=== PATIENT | female | born 1990 | race African-American/Black ===

== ENCOUNTER 2017-09-02 16:09 | Outpatient (CLI) | payer BC ==
[2017-09-02 17:25] LABS: Hemoglobin 13.1 g/dL (12.0-16.0); Mean Corpuscular HGB CONC 31.7 g/dL (32.0-36.0); Mean Corpuscular Hemoglobin 28.5 pg (27.0-31.0); Mean Platelet Volume 7.9 fL (7.4-10.4); Platelet Count 234 thou/uL (130-400); RBC Distribution Width 11.6 % (11.5-14.5); Red Blood Cell (RBC) Count 4.59 mill/uL (4.20-5.40)
[2017-09-02 19:48] LABS: BHCG - Serum Negative (NEGATIVE); Pregs Control Background? CLEAR/WHITE (CLR/WHITE); Pregs Control Bar Appear? YES (CONTROL BAR)
== END 2017-09-02 16:10 | disposition home or self-care (01) ==
LOC: LABBT 16:09
PROVIDERS: ATTEND Obstetrics & Gynecology
DX: Z01.812 Encounter for preprocedural laboratory examination (principal); N92.0 Excessive and frequent menstruation with regular cycle
CPT/HCPCS: 84703; 85027; 86850; 86900; 86901

== ENCOUNTER 2017-09-02 16:15 | Inpatient (IN) | payer BC ==
[2017-09-02 16:33] VITALS: BMI 36.3
--- NOTE | 2017-09-02 20:35 | HP ---
DATE OF PLANNED PROCEDURE: 09/03/2017 PROCEDURE TO BE PERFORMED: Total laparoscopic hysterectomy with bilateral salpingectomy and placemen t of ON-Q pump. PREOPERATIVE DIAGNOSES: Dysmenorrhea and menorrhagia with failed medical management. HISTORY OF PRESENT ILLNESS: Ms. Anette Pozo is a 27-year-old G0 with regular menstrual period who was referred to me from [place] [facility] for menorrhagia refractory to medical management. The patient gives a long history of heavy bleeding ever since [place]. She reports passing clots, cramping, bleedin g that affects her activities of daily living. The patient reports that she has used oral contracept richie pills, Depo-Provera, NuvaRing, Ortho Evra patch, Implanon and most recently the Mirena IUD with c ontinued abnormal bleeding. The patient came to me to discuss definitive treatment options. She pre viously had been counseled on ablation. The patient has reported to me over numerous visits that she is certain that she does not desire children. She is not in a relationship and has never been marri ed. She reports that it is the first day conversation every first date that she has no intentions on ever becoming . She reports that she has no maternal desire for children and does not plan on having any in the future. The patient reports that she feels like she has never had a normal lif e because her periods are so heavy. In addition to the medical options listed above, she also did a trial of Lysteda after seeing me with no improvement and had a workup for bleeding disorder which was negative. The patient was seen and counseled on numerous visits and strongly desires definitive man agement with a laparoscopic hysterectomy with bilateral salpingectomy. PAST MEDICAL HISTORY: Overweight, depression, anxiety. OBSTETRICAL HISTORY: G0. GYNECOLOGIC HISTORY: Periods are regular, painful, heavy, passing blood clots. Last Pap smear was n ormal. No history of STD or PID. She did receive the Gardasil vaccine. ALLERGIES: LATEX. CURRENT MEDICATIONS: Adderall 10 mg. 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 She has never been a smoker. S he drinks 3-5 alcoholic beverages a week. She has never used drugs. 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 She is single and sexually active. FAMILY HISTORY: There is no known uterine, breast, ovarian or cervical cancers. REVIEW OF SYSTEMS: Negative except as stated above. PHYSICAL EXAMINATION: VITAL SIGNS: Weight 235 pounds, blood pressure 120/78. GENERAL: No acute distress, alert and oriented. PSYCHIATRIC: Appropriate affect. LUNGS: Clear to auscultation bilaterally. CARDIOVASCULAR: No edema. ABDOMEN: Soft, no abdominal guarding, no tenderness, no hepatosplenomegaly, no hernias. GENITOURINARY: Normal external female genitalia, normal urethral meatus, normal vaginal mucosa, no c ervical lesions, nulliparous cervix. Uterus is normal nonenlarged, nontender, no adnexal masses. Pe rineum is normal. MUSCULOSKELETAL: Normal range of motion. NEUROLOGIC: Normal. SKIN: Normal. ASSESSMENT AND PLAN: Ms. Anette Pozo is a 27-year-old G0 with menorrhagia refractory to medical manag ement. She has failed all medical options and has been screened for bleeding disorders as well as Vo n Willbrand factor disorder. The patient feels and I agree with her that she has exhausted every hor monal option. She has expressed her certainty that she does not want to become or have any children and originally requested an ablation. After a long discussion of her history, failed medica l management and her social situation, we discussed the risk and benefits of tubal ligation or Essure with ablation versus robotic-assisted total laparoscopic hysterectomy and bilateral salpingectomy. The patient was provided handouts on all surgical procedures and the risk and benefits of each were r eviewed in detail. The patient has expressed her desire over multiple visits with me for definitive management with a total laparoscopic hysterectomy and bilateral salpingectomy. She understands the r isks are to include, but not limited to bleeding, infection, need for blood products, damage to intra -abdominal pelvic organs, inability to fully diagnose and treat all conditions at the time of surgery and possible need for future medical and/or surgical management. The patient also has verbalized mu ltiple times her understanding that child bearing will not be an option for her in the future and any desire for biologic children will require reproductive assistance, possible egg retrievals and a colten rogate carrier. The patient reports she has no interest in this, but is aware of the option. The samia shirley's questions have been answered to her satisfaction, and she desires to proceed with the procedu re as listed above.
[2017-09-03] MEDS ORDERED: Fentanyl 100 MCG/2 ML VIAL ONE ×3 (06:21→10:32)
[2017-09-03] MEDS ORDERED: HYDROmorphone 0.5 MG/0.5 ML SYRINGE ONE ×2 (06:22)
[2017-09-03] MEDS ORDERED: Bupivacaine HCl 0.5%/Epinephrine 1:200,000/PF 30 ml Vial ONE (06:31)
[2017-09-03] MEDS ORDERED: CEFAZOLIN/Water 2 GM/20 ML SYRINGE ONE (06:44)
[2017-09-03] MEDS ORDERED: Gabapentin 300 MG CAP ONE ×2 (07:46)
[2017-09-03] MEDS ORDERED: Famotidine/PF 20 mg/2ml Vial ONE (07:46)
[2017-09-03] MEDS ORDERED: Ropivacaine HCl/PF 750 ML in Premix Bag 1 BAG NERVE BLCK SCH (08:15)
[2017-09-03] MEDS ORDERED: Ropivacaine 0.2% 550 ML 750 ML NERVE BLCK SCH (08:15)
[2017-09-03] MEDS ORDERED: Ondansetron HCl/PF 4 MG/2 ML Vial IVP PRN ×2 (10:49→11:15)
[2017-09-03] MEDS ORDERED: Promethazine HCl 25 MG/ML VIAL SLOW IVP PRN (10:49)
[2017-09-03] MEDS ORDERED: Promethazine HCl 25 MG/ML VIAL IM PRN ×2 (10:49→11:15)
--- NOTE | 2017-09-03 10:50 | OP ---
DATE OF PROCEDURE: 09/03/2017 PREOPERATIVE DIAGNOSES: Dysmenorrhea and menorrhagia refractory to medical management. POSTOPERATIVE DIAGNOSES: Dysmenorrhea and menorrhagia refractory to medical management. PROCEDURE PERFORMED: Robotic-assisted total laparoscopic hysterectomy with bilateral salpingectomy a nd fulguration of endometriotic lesions. SURGEON: Maciej iKm D.O. ENGINE MECHANIC: Garcia Bryson M.D. ANESTHESIA: General endotracheal per Dr. Coffman. COMPLICATIONS: None. ESTIMATED BLOOD LOSS: 30 mL. URINE OUTPUT: 500 mL. LAPAROSCOPIC FINDINGS: 1. Normal appearing uterus, tubes and ovaries bilaterally. 2. Endometriotic lesions at the uterosacral ligaments and cul-de-sac. 3. No intraabdominal adhesive disease. 4. Surgical site hemostatic 5. Ureters identified bilaterally. PROCEDURE DETAILS: The patient was taken back to the OR with IV fluids running. Once she was in the OR, general anesthesia was obtained and the patient was placed in low dorsal lithotomy position. Af ter the patient was asleep, her arms were tucked at her sides. SCDs had previously been applied and initiated to the lower extremities and she received preoperative antibiotics. The vagina and abdomen were prepped and draped in normal fashion for gynecologic laparoscopy. The surgeons were scrubbed i n. Beginning vaginally, a catheter was placed into the urethra with approximately [address] ained from the bladder at the start of the case. A Delphine syringe was attached to the tip of the Fol ey catheter for manipulation of the bladder if needed during the case. An operative speculum was bharti josafat into the vagina with a normal appearing vagina and cervix noted. A single-tooth tenaculum was pl aced on the anterior lip of the cervix, uterus sounded to approximately 9 cm. A DEEPTHI Ridge manipulator was assembled with a 3-1/2 cm cup and 9 cm tip. The uterine manipulator was placed in the uterus an d vagina in normal fashion without difficulty. After the uterine manipulator was placed operative sp eculum was removed as well as the tenaculum. The surgeon's gloves were changed and attention was tur haley to the laparoscopic portion of the case. Beginning at the infraumbilical fold lidocaine was plac ed in the subcutaneous tissue. After the subcutaneous tissue was infiltrated with the local anesthet ic, a 12 mm skin incision was made with the scalpel. A Veress needle was then placed through this in cision, the peritoneal cavity was entered and the abdomen was insufflated without difficulty. Once t he abdomen was insufflated, the Veress needle was removed and a 12 mm trocar was placed through this incision. After the trocar was placed, the laparoscope was placed through this trocar with the above findings noted. The patient was then placed in Trendelenburg position. Next, under direct visualiz ation and in similar fashion a right lower quadrant 8 mm robotic port was placed as well as the right upper quadrant 11 mm staffing assistant port. On the left side an 8 mm robotic trocar port was placed as wel l, all under direct visualization without difficulty. After all 4 ports were placed, the robotic arm s were docked at the patient's bedside and the instruments were entered through the port cannulas und er direct visualization. Beginning on the patient's left side, the left fallopian tube was grasped a t the fimbriated end, elevated away from the ovary. Bipolar cautery as well as monopolar cautery wer e used to completely dissect the left fallopian tube from the ovary and the uterus. The fallopian tu be segment was then removed through the port to be sent with the final specimen. Next, the utero-ova shawnee ligament was cauterized with bipolar cautery and divided, freeing the ovary away from the uterus and it falling away to the pelvic sidewall. Next, the round ligament on the patient's left side was cauterized and incised, dividing it into anterior and posterior leaves. The broad ligament was then dissected down along the left side of the uterus to the level of the uterine artery. When the uteri ne artery was reached the uterine artery and accessory vessels were skeletonized. The anterior flap of the leaf of the broad ligament was then taken down towards the midline at the cervix to dissect th e bladder away from the planned colpotomy site. After the bladder flap was created and the bladder w as dissected down off the cervix the uterine vessels on the patient's left side were cauterized and d ivided. Hemostasis was noted. Next, attention was turned to the contralateral side. In similar fas hion, the right fallopian tube was cauterized and excised removing it from the surgical field. The u tero-ovarian ligament was cauterized and incised, freeing the ovary to fall away at the pelvic sidewa ll. The right round ligament was cauterized and divided into anterior and posterior leafs. The diss ection was carried down towards the level of the uterine arteries which were then skeletonized. The anterior leaf of the broad ligament was then taken down to the midline to meet the contralateral side of the previous bladder flap dissection. The uterine artery was then cauterized on the patient's ri ght side. Endometriotic lesions were noted in the cul-de-sac and at the uterosacral on the patient's right side. Monopolar cautery was used to destruct these lesions. Next the bladder was back filled with good bladder and under direct visualization and the bladder was inspected with good integrity o f the bladder noted and the bladder noted to be well away from the planned colpotomy site. Next, the colpotomy was performed circumferentially using monopolar cautery and bipolar cautery when necessary . After the colpotomy was complete, the uterine specimen was retracted into the vagina and remained there for the remainder of the case for pneumoperitoneum. The vaginal cuff was inspected and any sma ll areas of bleeding were controlled with bipolar cautery. The vaginal cuff and pelvic sidewalls wer e irrigated and suctioned dry. No areas of bleeding were noted. The vaginal cuff was then closed in two layers with Stratafix suture in a running fashion. Once the vaginal cuff was closed, the pelvis was irrigated again and suctioned dry. The pressure was dropped down to 6 mmHg with no evidence of bleeding. Ureters were identified again and noted to be vermiculating bilaterally. The urine was cl ear with approximately 200 mL of urine drained during the case. Next, under direct visualization, an ON-Q catheter port was placed through just below the umbilicus. The catheter was guided down into t he cul-de-sac and the catheter was primed with Marcaine. This completed the laparoscopic portion of the case. At this time, the gas was removed from the abdomen. The ports were removed. The instrume nt and sponge counts were correct. The supraumbilical port site was closed at the fascial layer with Vicryl suture. All 4 skin incisions were closed with Monocryl suture and dressed with Dermabond tesfaye ssing and a Tegaderm was placed over the ON-Q catheter insertion site. The patient was cleaned and dried. The vagina was inspected with no trauma or bleeding noted. The p atient was then taken out of lithotomy position, extubated, and transferred to the recovery room in g ood condition.
[2017-09-03] MEDS ORDERED: diphenhydrAMINE 25 MG CAP PO PRN (11:15)
[2017-09-03] MEDS ORDERED: Morphine 5 MG/ML SYRINGE SLOW IVP PRN (11:15)
[2017-09-03] MEDS ORDERED: Acetaminophen/Codeine 30-300mg Tablet PO PRN ×2 (11:15)
[2017-09-03] MEDS ORDERED: Bisacodyl 10 MG SUPP PR PRN (11:15)
[2017-09-03] MEDS ORDERED: Lactated Ringer's 1,000 ML IV SCH (11:15)
[2017-09-03] MEDS ORDERED: Ketorolac Tromethamine 30 MG/ML VIAL IVP SCH (12:00)
--- NOTE | 2017-09-03 13:57 | PDOC.EVN ---
Event Note - Event Note Event Note: POD#0 S: no nausea, tolerating clears, pain controlled w IV meds O: VS WNL NAD A and O nonlabored breathing Abd: incisions CDI x 4 A/p: POD#0 RATLH/BS, poss DC later today if post op goals met.
[2017-09-03] MEDS ORDERED: Ketorolac Tromethamine 30 MG/ML VIAL ONE (15:38)
[2017-09-03] MEDS ORDERED: Metoclopramide HCl 10 MG/2 ML VIAL ONE (15:38)
[2017-09-03] MEDS ORDERED: Lidocaine 1% PF 5 ML VIAL ONE (15:38)
[2017-09-03] MEDS ORDERED: PROPOFOL 200 MG/20 ML VIAL ONE (15:38)
[2017-09-03] MEDS ORDERED: Glycopyrrolate 0.2 MG/ML 5 ML SYRINGE ONE (15:38)
[2017-09-03] MEDS ORDERED: Ondansetron HCl/PF 4 MG/2 ML Vial ONE (15:38)
[2017-09-03] MEDS ORDERED: Dexamethasone 20 MG/5 ML VIAL ONE (15:38)
[2017-09-03 16:09] VITALS: BP 124/76; TEMP 99
== END 2017-09-03 16:45 | disposition home or self-care (01) | DRG 743 ==
LOC: SURG A 09-03 06:04 → 3SE 09-03 11:16
PROVIDERS: ADMIT Obstetrics & Gynecology; ATTEND Obstetrics & Gynecology
PROC: 0UT9FZZ Resection of Uterus, Via Natural or Artificial Opening With Percutaneous Endoscopic Assistance (ICD-10-PCS; principal; 2017-09-03)
PROC: 8E0W4CZ Robotic Assisted Procedure of Trunk Region, Percutaneous Endoscopic Approach (ICD-10-PCS; 2017-09-03)
DX: N92.1 Excessive and frequent menstruation with irregular cycle (principal); N80.0 Endometriosis of uterus
CPT/HCPCS: 88307; J2270; A4306; J0131; J0670; J1100; J1170; J1885; J2001; J2405; J2704; J2765; J2795; J3010; S0028